=== PATIENT | female | born 1995 | race American Indian/Alaskan Native ===

== ENCOUNTER 2018-01-02 17:56 | Emergency (ER) | payer SELFPAY ==
[2018-01-02] MEDS ORDERED: NACL 0.9% 1000 ML 1,000 ML IV ONE (19:54)
[2018-01-02] MEDS ORDERED: PHENERGAN PO ONE (19:54)
[2018-01-02] MEDS ORDERED: PHENERGAN PR ONE (20:14)
[2018-01-02 20:23] LABS: Basophils % (Auto) 0.3 % (0.0-1.8); Hematocrit 35.4 % (30.3-42.9); Hemoglobin 11.8 gm/dl (10.1-14.3); Lymphocytes # (Auto) 1.2 K/mm3 (1.2-5.4); Lymphocytes % (Auto) 17.3 % (13.4-35.0); Mean Corpuscular HGB Conc 33 % (30-34); Mean Corpuscular Hemoglobin 30 pg (28-32); Mean Corpuscular Volume 89 fl (79-97); Monocytes # (Auto) 0.3 K/mm3 (0.0-0.8); Monocytes % (Auto) 3.8 % (0.0-7.3); Platelet Count 207 K/mm3 (140-440); Red Blood Count 3.98 M/mm3 (3.65-5.03); Red Cell Distribution Width 15.9 % (13.2-15.2)
[2018-01-02 20:38] LABS: Alanine Aminotransferase 10 units/L (7-56); Albumin 4.5 g/dL (3.9-5); BUN/Creatinine Ratio 27; Blood Urea Nitrogen 16 mg/dL (7-17); Calcium 9.5 mg/dL (8.4-10.2); Hemolysis Index 7; Lipase 13 units/L (13-60)
[2018-01-02] MEDS ORDERED: MORPHINE IV ONE (21:21)
[2018-01-02] MEDS ORDERED: VITAMIN B-1 100 MG, FOLVITE 1 MG, INFUVITE 10 ML in NACL 0.9% 1000 ML 1,000 ML IV ONE (21:24)
[2018-01-02] MEDS ORDERED: MORPHINE ONE (22:01)
--- NOTE | 2018-01-02 23:05 | Emergency Department Report ---
HPI - General Chief Complaint: Nausea/Vomiting/Diarrhea Time Seen by Provider: 01/02/18 19:52 - HPI HPI: The patient is a 22-year-old female , and no EGA, who presents for evaluation of abdominal pain, nausea and vomiting. The patient reports 2 weeks of cramping lower abdominal pain, mild in severity, exacerbated with retching, and associated with nausea and multiple episodes of nonbilious, nonbloody emesis. She reports history of hyperemesis with previous . She shares that she has not received an ultrasound confirming IUP. The patient denies fever, chills, night sweats, diarrhea, blood in the stool, dark tarry stool, dysuria, hematuria, flank pain, genital discharge, vaginal bleeding, inability to pass flatus. ED Past Medical Hx - Past Medical History Previous Medical History?: No - Surgical History Past Surgical History?: Yes Additional Surgical History: D&C 2015 - Social History Smoking Status: Never Smoker Substance Use Type: None - Medications Home Medications: Home Medications Medication Instructions Recorded Confirmed Last Taken Type Acetaminophen [Tylenol] 1,000 mg PO Q6HR #20 tablet 01/03/18 Unknown Rx Pnv No.95/Ferrous Fum/Folic AC 1 each PO QDAY #31 tablet 01/03/18 Unknown Rx [ Vitamin Tablet] Promethazine [Phenergan] [address] Q6HR PRN #20 supp.rect 01/03/18 Unknown Rx ED Review of Systems ROS: Stated complaint: 2MOS /VOMITING Other details as noted in HPI Constitutional: denies: fever ENT: denies: throat or neck pain Respiratory: denies: cough, shortness of breath Cardiovascular: denies: chest pain Endocrine: denies unexplained weight loss or gain Gastrointestinal: reports abdominal pain, nausea Genitourinary: denies: dysuria Musculoskeletal: denies: leg swelling Skin: denies: rash Neurological: denies: headache Hematological/Lymphatic: denies: easy bleeding or easy bruising Psych: denies sadness or hopelessness Physical Exam - Physical Exam Vital Signs: Vital Signs 01/02/18 01/02/18 01/02/18 18:02 20:00 20:02 Temperature 99.9 F H 99 F Pulse Rate 87 70 Respiratory 16 18 Rate Blood Pressure 112/76 140/82 Blood Pressure 133/78 [Left] O2 Sat by Pulse 99 100 100 Oximetry 01/02/18 21:00 Temperature Pulse Rate Respiratory Rate Blood Pressure 108/57 Blood Pressure [Left] O2 Sat by Pulse 100 Oximetry Physical Exam: General: well-nourished, well-developed, no acute distress Head: Normocephalic, atraumatic Eyes: normal sclera ENT: Mucous membranes are pale and dry Neck: No neck stiffness, no cervical adenopathy Respiratory: Breath sounds equal bilaterally, no wheezing, rales, or rhonchi Cardio: S1 and S2 present, no murmurs, rubs, gallops, capillary refill is delayed Abdomen: Normoactive bowel sounds, soft abdomen, suprapubic tenderness to palpation present, no rigidity, no guarding or rebound tenderness Musc: No pitting edema Skin: No rash Neuro: no facial drooping, normal speech Psych: Normal affect ED Course Vital Signs 01/02/18 01/02/18 01/02/18 18:02 20:00 20:02 Temperature 99.9 F H 99 F Pulse Rate 87 70 Respiratory 16 18 Rate Blood Pressure 112/76 140/82 Blood Pressure 133/78 [Left] O2 Sat by Pulse 99 100 100 Oximetry 01/02/18 21:00 Temperature Pulse Rate Respiratory Rate Blood Pressure 108/57 Blood Pressure [Left] O2 Sat by Pulse 100 Oximetry ED Medical Decision Making - Lab Data Result diagrams: 01/02/18 20:02 01/02/18 20:02 - Medical Decision Making The patient was seen and examined by myself. The patient is placed on a quality assurance monitor chassis and continuous pulse ox. On initial evaluation, the patient was found to be in no distress. Evaluation orders are placed. IV access is established and the patient is given 1 L normal saline fluid bolus, and CT phenergan for nausea, and IV morphine for her pain. Lab results revealed elevated hCG, and otherwise labs were non-concerning including WBC, hemoglobin, hematocrit, electrolytes, renal function, LFTs, lipase. Ultrasound of the pelvis was performed and the patient was found to have live intrauterine at 7 weeks 3 days, with normal heart rate. The patient was reevaluated and reported that their symptoms were markedly improved. The patient is stable for discharge with outpatient follow-up. The patient is given follow-up and return instructions. The patient expressed understanding and agreed with the plan. The patient is discharged in stable condition. Critical care attestation.: If time is entered above; I have spent that time in minutes in the direct care of this critically ill patient, excluding procedure time. ED Disposition Clinical Impression: Dehydration, Nausea and vomiting during , Abdominal pain during in first trimester Disposition: TO HOME OR SELFCARE Is pt being admited?: No Does the pt Need Aspirin: No Condition: Stable Instructions: Hyperemesis Gravidarum (ED), Abdominal Pain in (ED) Referrals: MATT RODRIGUEZ MD [Staff Physician] - 3-5 Days [facility] [Provider Group] - 3-5 Days Time of Disposition: 23:01
[2018-01-02 23:25] VITALS: BP 108/68
--- NOTE | 2018-01-02 23:27 | Ultrasound Report ---
FINAL REPORT PROCEDURE: US OB transvaginal and transabdominal TECHNIQUE: Real-time transabdominal and transvaginal sonography of the uterus, placenta, amniotic fluid, adnexa, and fetus was performed with image documentation. Measurements were obtained to determine age/size. M-mode Doppler was used to document heartbeat. CPT 37922 and 54627 HISTORY: ab pain, preg COMPARISON: No prior studies are available for comparison. FINDINGS: ADDITIONAL GESTATION: None. CRL: 12 mm, which corresponds to a gestational age of: 7 weeks, 3 days. Yolk Sac: Normal. Embryonic Cardiac Activity: 167 beats per minute Gestational Sac: Normal. Amniotic fluid: Normal. Cervix: Normal. Right Ovary: There is a 22 millimeters dominant cyst on the right ovary Left Ovary: Normal. Estimated delivery date: 08/18/2018 Uterus and adnexa: Normal. IMPRESSION: 1. Single live intrauterine gestation at approximately 7 weeks, 3 days. 2. EDC by US 08/18/2018 3. Complete anatomic survey at 18-20 weeks suggested.
--- NOTE | 2018-01-02 23:28 | Ultrasound Report ---
FINAL REPORT PROCEDURE: US OB transvaginal and transabdominal TECHNIQUE: Real-time transabdominal and transvaginal sonography of the uterus, placenta, amniotic fluid, adnexa, and fetus was performed with image documentation. Measurements were obtained to determine age/size. M-mode Doppler was used to document heartbeat. CPT 32329 and 98386 HISTORY: ab pain, preg COMPARISON: No prior studies are available for comparison. FINDINGS: ADDITIONAL GESTATION: None. CRL: 12 mm, which corresponds to a gestational age of: 7 weeks, 3 days. Yolk Sac: Normal. Embryonic Cardiac Activity: 167 beats per minute Gestational Sac: Normal. Amniotic fluid: Normal. Cervix: Normal. Right Ovary: There is a 22 millimeters dominant cyst on the right ovary Left Ovary: Normal. Estimated delivery date: 08/18/2018 Uterus and adnexa: Normal. IMPRESSION: 1. Single live intrauterine gestation at approximately 7 weeks, 3 days. 2. EDC by US 08/18/2018 3. Complete anatomic survey at 18-20 weeks suggested.
[2018-01-02 23:45] LABS: Bilirubin,Urine NEG (Negative); Blood,Urine NEG (Negative); Mucus,Urine 3+ /HPF
[2018-01-02 23:48] LABS: Color,Urine Yellow (Yellow)
== END 2018-01-03 00:30 | disposition home or self-care (01) ==
LOC: EDBD → ED 17:56
DX: O26.891 Other specified pregnancy related conditions, first trimester (principal); Z3A.01 Less than 8 weeks gestation of pregnancy; E86.0 Dehydration
CPT/HCPCS: 36415; 76801; 76817; 80053; 81001; 83690; 84702; 85025; 93005; 93010; 96361; 96365; 96366; 96375; 99284; J2270; J3411; J7030